=== PATIENT | male | born 1990 | race Hispanic/Latino ===

== ENCOUNTER 2016-06-25 03:14 | Emergency (ER) | payer BC ==
[2016-06-25 03:30] VITALS: BP 132/92; TEMP 98.7
[2016-06-25] MEDS ORDERED: TDAP Vaccine 0.5 mL Syr IM ONE (03:36)
[2016-06-25] MEDS ORDERED: Lidocaine 1% w Epi 1:100,000 Inj IJ STA (04:16)
[2016-06-25] MEDS ORDERED: Lidocaine 2% w Epi 1:100,000 Inj IJ ONE (04:18)
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
[2016-06-25 04:54] VITALS: PULSE 89; RESP 18
[2016-06-25 05:16] VITALS: O2SAT 100
== END 2016-06-25 04:52 | disposition home or self-care (01) ==
LOC: H.ER 03:14
DX: S01.01XA Laceration without foreign body of scalp, initial encounter (principal); Y04.0XXA Assault by unarmed brawl or fight, initial encounter; Y92.89 Other specified places as the place of occurrence of the external cause